=== PATIENT | male | born 1975 | race Caucasian/White ===

== ENCOUNTER 2019-01-13 21:46 | Emergency (ER) | payer OTHER, SELFPAY ==
[2019-01-13 21:50] VITALS: BP 156/92; PULSE 97; RESP 16; TEMP 36.5; O2SAT 95; BMI 34.7
--- NOTE | 2019-01-13 22:20 | DI.US.S_ITS ---
PROCEDURE: US ABDOMEN LIMITED INDICATIONS: POST PRANDIAL EPIGASTRIC PAIN TECHNIQUE: Real-time focused scanning was performed of the abdomen, with image documentation. COMPARISON: [facility], CT, CT ABDOMEN PELVIS W CON, 01/14/2019, 0:10. FINDINGS: The liver is enlarged and demonstrates increased echogenicity. No findings of gallstones or sludge are seen. The gallbladder wall is not thickened, measuring 3 mm or less. No specific pericholecystic fluid is seen. The sonographic Nguyen sign is negative. There is no biliary dilatation, the common bile duct measures 5 mm. The visualized pancreas is unremarkable. IMPRESSION: The gallbladder demonstrates a normal sonographic appearance. No biliary dilatation is seen. Enlarged, fatty liver. Note: No significant discrepancy from the preliminary report. Dictated by: Mando Calderon M.D. on 01/14/2019 at 7:42 Approved by: Mando Calderon M.D. on 01/14/2019 at 7:43
[2019-01-13] MEDS: ONDANSETRON 4 MG/2 ML INJ IV (22:21)
[2019-01-13] MEDS: SODIUM CHLORIDE 0.9% 1,000 ML 1000 ML IV (22:21)
[2019-01-13] MEDS: HYDROMORPHONE 1 MG INJ 0.5 MG IV (22:27)
[2019-01-13] MEDS: PANTOPRAZOLE 40 MG VIAL IV (22:27)
[2019-01-13 22:32] LABS: Alanine Aminotransferase 36 IU/L (21-72); Albumin 4.5 g/dL (3.5-5.0); Albumin Globulin Ratio 1.4 (1.0-2.8); Alkaline Phosphatase 76 U/L (38-126); Aspartate Aminotransferase 39 IU/L (17-59); BUN Creatinine Ratio 17.1 (6-22); Bilirubin Total 0.7 mg/dL (0.2-1.3); Blood Urea Nitrogen 12 mg/dL (9-20); Calcium 9.4 mg/dL (8.4-10.2); Carbon Dioxide 31 mmol/L (22-32); Chloride 98 mmol/L (98-107); Estimated Glomerular Filt Rate > 60.0 mL/min (>60); Globulin 3.2 g/dL (1.7-4.1); Glucose 132 mg/dL (70-100); HEMOLYSIS < 15 (0-50); Lipase 42 U/L (23-300); Potassium 4.3 mmol/L (3.4-5.1); Sodium 139 mmol/L (137-145); Total Protein 7.7 g/dL (6.3-8.2)
[2019-01-13 22:38] VITALS: BP 105/44; PULSE 90; RESP 18; O2SAT 94
[2019-01-13 22:39] LABS: Add Manual Diff / Slide Review NO; Basophils Absolute Auto 0 /uL (0-100); Basophils Percent Auto 0.5 % (0-2); Eosinophils Absolute Auto 100 /uL (0-450); Eosinophils Percent Auto 1.1 % (2-4); Hemoglobin 10.4 g/dL (13.5-17.5); Lymphocytes Absolute Auto 1100 /uL (1100-4500); Mean Corpuscular HGB Conc 29.6 % (30-36); Mean Corpuscular Hemoglobin 20.3 PG (26-34); Mean Corpuscular Volume 68.4 fL (80-100); Monocytes Absolute Auto 600 /uL (0-900); Monocytes Percent Auto 6.1 % (3-14); Neutrophils Absolute Auto 7500 /uL (1500-7000); Neutrophils Percent Auto 80.3 % (50-75); Platelet Count 243 X10^3/uL (150-400); Red Blood Cell Count 5.12 X10^6/uL (4.5-5.9); Red Cell Distribution Width 17.7 % (11.6-14.8); White Blood Cell Count 9.4 X10^3/uL (4.5-11.0)
[2019-01-13 23:22] LABS: Anisocytosis 2+; Microcytosis 1+
--- NOTE | 2019-01-13 23:39 | DI.CT.S_ITS ---
PROCEDURE: CT ABDOMEN PELVIS W CON INDICATIONS: severe abdominal pain TECHNIQUE: After the administration of intravenous contrast, 5 mm thick sections acquired from the diaphragm to the symphysis. Images are repeated, secondary to motion artifact. 5 mm coronal and sagittal reformats were acquired. For radiation dose reduction, the following was used: automated exposure control, adjustment of mA and/or kV according to patient size. COMPARISON: [facility], , ABDOMEN LIMITED, 01/13/2019, 22:43. FINDINGS: Image quality: This examination is limited by involuntary motion artifact. Images are repeated, with some improvement. ABDOMEN: Lung bases: Lung bases are clear. Heart size is normal. There is a large hiatal hernia seen, which contains the majority of the patient's stomach. Solid organs: Liver is normal in size and enhancement. Gallbladder wall is not thickened. Biliary system is non dilated. Pancreas enhances normally. The spleen is enlarged measuring 18 cm AP. No focal splenic lesions are seen. Calcified granulomas can be seen within the spleen. No adrenal nodules. Kidneys demonstrate normal size and enhancement, without hydronephrosis. Peritoneum and bowel: Bowel loops demonstrate normal wall thickness and caliber. A trace amount of free fluid can be seen within the pelvis, as on series 2 image 91. No free air. Incidental note is made of a normal-appearing appendix. Right lower quadrant clips are also seen. Minimal sigmoid diverticulosis is seen, without findings of active diverticulitis. Nodes and vessels: No retroperitoneal or mesenteric adenopathy by size criteria. Aorta and inferior vena cava are normal in size. Miscellaneous: No ventral hernias. PELVIS: Genitourinary: Bladder wall thickness is normal. Miscellaneous: Bilateral fat-containing inguinal hernias are seen. No enlarged inguinal hernias are seen. Bones: No suspicious bony lesions. No vertebral body compression fractures. IMPRESSION: Large hiatal hernia, containing majority of the patient's stomach. There is a trace amount of free fluid seen within the pelvis. No abscess. There is a normal appendix seen. Splenomegaly. Negative for diverticulitis or bowel obstruction. Incidental note is made of: Prior granulomatous exposure. Bilateral inguinal hernias Note: No significant discrepancy from the preliminary report. Dictated by: Mando Calderon M.D. on 01/14/2019 at 7:44 Approved by: Mando Calderon M.D. on 01/14/2019 at 7:49
[2019-01-13 23:40] VITALS: BP 104/57; PULSE 83; RESP 18; O2SAT 98
[2019-01-14] MEDS: HYDROMORPHONE 1 MG INJ IV (00:25)
--- NOTE | 2019-01-14 01:17 | ED.ABDPAIN ---
HPI - Abdominal Pain General Chief Complaint: Abdominal Pain Stated Complaint: Vomiting,abdominal pain Time Seen by Provider: 01/13/19 22:01 Source: patient and family Mode of arrival: ambulatory Limitations: no limitations History of Present Illness HPI narrative: 43-year-old male former chewing tobacco user and chronic drinker presents with his and evaluation of severe epigastric pain with radiation to his back which started a few hours ago tonight after eating dinner. His pain is in his epigastrium and worse with food, drink and palpation. He is nauseated and vomited a few times. He denies fever or shaking chills. He denies any history of the same. MD complaint: abdominal pain Onset (ago): hour(s) Pain Consistency: constant Location: epigastric Severity: moderate Quality: cramping and aching Radiation: epigastric Migration to: no migration Relieving factors: nothing Exacerbating factors: eating Associated symptoms: nausea and vomiting Related Data Allergies Allergy/AdvReac Type Severity Reaction Status Date / Time No Known Drug Allergies Allergy Verified 01/13/19 22:00 Review of Systems Constitutional Denies chills, Denies fever(s), Denies lethargy and Denies weakness Eyes Denies change in vision, Denies eye discharge, Denies irritation and Denies loss of vision ENT Ears, Nose, Mouth, and Throat: Denies change in voice, Denies neck pain and Denies sore throat Cardiovascular Denies chest pain, Denies irregular heart rhythm, Denies lightheadedness, Denies palpitations, Denies dyspnea, Denies dyspnea on exertion and Denies orthopnea Respiratory Denies cough, Denies dyspnea, Denies dyspnea on exertion and Denies wheezing Gastrointestinal Gastrointestinal: Reports abdominal pain, Denies change in bowel habits, Denies diarrhea, Reports nausea and Reports vomiting Genitourinary Denies hematuria, Denies flank pain, Denies urinary incontinence and Denies urinary urgency Musculoskeletal Denies neck pain Integumentary/Breasts Denies pruritus, Denies erythema, Denies rash and Denies wounds Neurologic Denies confusion, Denies loss of vision and Denies weakness Psychiatric Denies anxiety, Denies confusion, Denies depression, Denies homicidal ideation and Denies suicidal ideation Endocrine Denies palpitations Hematologic/Lymphatic Denies easy bruising Allergic/Immunologic Denies wheezing [facility] Social History Smoking Status: Former smoker Social History Smoking Status: Former smoker Exam Narrative Exam Narrative: GENERAL: 43M in obvious pain, rubbing his upper abdomen HEAD: Atraumatic. Normocephalic. No temporal or scalp tenderness. EYES: Pupils equal round and reactive. Extraocular motions intact. No scleral icterus. No injection or drainage. ENT: Nose without bleeding, purulent drainage or septal hematoma. Throat without erythema, tonsillar hypertrophy or exudate. Uvula midline. Airway patent. NECK: Trachea midline. No JVD or lymphadenopathy. Supple, nontender, no meningeal signs. CARDIOVASCULAR: Regular rate and rhythm without murmurs, gallops, or rubs. RESPIRATORY: Clear to auscultation. Breath sounds equal bilaterally. No wheezes, rales, or rhonchi. GASTROINTESTINAL: Abdomen soft, tender epigastrum, nondistended. No hepato-splenomegaly, or palpable masses. No guarding. EXTREMITIES: No clubbing, cyanosis, or edema. No joint tenderness, effusion, or edema noted. BACK: Nontender without deformity or crepitance. No flank tenderness. NEURO: AOx3. SKIN: No rash or erythema. Initial Vital Signs Initial Vital Signs: Vital Signs Temperature 97.7 F 01/13/19 21:50 Pulse Rate 97 H 01/13/19 21:50 Respiratory Rate 16 01/13/19 21:50 Blood Pressure 156/92 H 01/13/19 21:50 Pulse Oximetry 95 01/13/19 21:50 Course Orders Ordered: ED Orders 01/13/19 22:05 Complete Blood Count AUTO DIFF Stat Comprehensive Metabolic Panel Stat Lipase Stat 01/13/19 22:20 US abdomen limited Stat 01/13/19 23:39 CT abdomen pelvis w con Stat Discontinued Medications Hydromorphone HCl (Dilaudid) 0.5 mg IV NOW ONE Stop: 01/13/19 22:20 Last Admin: 01/13/19 22:27 Dose: 0.5 mg Hydromorphone HCl (Dilaudid) 1 mg IV NOW ONE Stop: 01/13/19 23:50 Last Admin: 01/14/19 00:25 Dose: 1 mg Sodium Chloride (Normal Saline 0.9%) 1,000 mls @ 1,000 mls/hr IV BOLUS ONE Stop: 01/13/19 23:11 Last Infusion: 01/13/19 23:29 Dose: 0 mls/hr Admin: 01/13/19 22:21 Dose: 1,000 mls/hr Ondansetron HCl (Zofran) 4 mg IV NOW ONE Stop: 01/13/19 22:13 Last Admin: 01/13/19 22:21 Dose: 4 mg Pantoprazole Sodium (Protonix) 40 mg IV NOW ONE Stop: 01/13/19 22:21 Last Admin: 01/13/19 22:27 Dose: 40 mg Reevaluation(s) Reevaluation #1: patient feeling better after dilaudid Vital Signs - 8 hr 01/13/19 21:50 01/13/19 22:38 01/13/19 23:40 Temperature 97.7 F Pulse Rate 97 H 90 83 Respiratory Rate 16 18 18 Blood Pressure 156/92 H Blood Pressure [Left Arm] 105/44 L 104/57 L Pulse Oximetry 95 94 98 MDM - Abdominal Pain Lab Data Attestation: I reviewed the patient's lab results. Result diagrams: 01/13/19 22:05 01/13/19 22:05 Lab Results 01/13/19 01/13/19 Range/Units 22:05 22:05 WBC 9.4 (4.5-11.0) X10^3/uL RBC 5.12 (4.5-5.9) X10^6/uL Hgb 10.4 L (13.5-17.5) g/dL Hct 35.0 L (41-53) % MCV 68.4 L (80-100) fL MCH 20.3 L (26-34) PG MCHC 29.6 L (30-36) % RDW 17.7 H (11.6-14.8) % Plt Count 243 (150-400) X10^3/uL Neut % (Auto) 80.3 H (50-75) % Lymph % (Auto) 12.0 L (25-40) % [place] % (Auto) 6.1 (3-14) % Eos % (Auto) 1.1 L (2-4) % Baso % (Auto) 0.5 (0-2) % Neut # (Auto) 7500 H (6198-8145) /uL Lymph # (Auto) 1100 (5404-5334) /uL [place] # (Auto) 600 (0-900) /uL Eos # (Auto) 100 (0-450) /uL Baso # (Auto) 0 (0-100) /uL Plt Morphology Comment * RBC Morphology See below Anisocytosis 2+ H Microcytosis 1+ H Sodium 139 (137-145) mmol/L Potassium 4.3 (3.4-5.1) mmol/L Chloride 98 (98-107) mmol/L Carbon Dioxide 31 (22-32) mmol/L BUN 12 (9-20) mg/dL Creatinine 0.70 (0.66-1.25) mg/dL Estimated GFR > 60.0 (>60) mL/min BUN/Creatinine Ratio 17.1 (6-22) Glucose 132 H (70-100) mg/dL Calcium 9.4 (8.4-10.2) mg/dL Total Bilirubin 0.7 (0.2-1.3) mg/dL AST 39 (17-59) IU/L ALT 36 (21-72) IU/L Alkaline Phosphatase 76 (38-126) U/L Total Protein 7.7 (6.3-8.2) g/dL Albumin 4.5 (3.5-5.0) g/dL Globulin 3.2 (1.7-4.1) g/dL Albumin/Globulin Ratio 1.4 (1.0-2.8) Lipase 42 (23-300) U/L Point of care testing: Urine Dip Bedside Urine Glucose Negative Bedside Urine Bilirubin - Negative Bedside Urine Ketone - Negative Urine Specific [place] 1.025 Bedside Urine Occult Blood - Negative Bedside Urine pH 6.0 Bedside Urine Protein +/- 15 Bedside Urine Urobilinogen +/- 1mg Bedside Urine Nitrite - Negative Bedside Urine Leukocytes - Negative Esterase Imaging Data US - abdomen: Radiologist's impression: normal GB fatty liver CT scan - abdomen: Radiologist's impression: No acute disease in the abdomen or pelvis. No evidence of bowel obstruction or free air. Normal appendix. Large hiatal hernia. Splenomegaly. MDM Narrative Medical decision making narrative: Multiple etiologies for patient's symptoms considered including: [Pancreatitis versus gallbladder disease versus bowel obstruction versus GERD versus peptic ulcer disease versus gastritis] Patient's symptoms improved or duration of stay with above-stated therapies. Findings and discharge diagnosis discussed with patient/family followed by verbalization of understanding Return precautions discussed with patient/family whom verbalize understanding. Discharge Plan Departure Patient Disposition: Home Clinical Impression: Abdominal pain, acute, epigastric Instructions: DI for Abdominal Pain-Adult Activity Restrictions/Additional Instructions: 1. Drink plenty of fluids with frequent small sips. 2. For the next 24 hours a clear liquid diet is advised. After that please employ a brat diet which would include bananas, rice, apples, toast. 3. Please take medications as directed. Consider over the counter Nexium 4. Please follow-up with your doctor in the next 1-2 days. Call the office for an appointment. 5. Please return to the emergency Department for any worsening or persistent symptoms, such as increasing pain or fever.
--- NOTE | 2019-01-14 01:23 | ED_ITS ---
HPI - Abdominal Pain General Chief Complaint: Abdominal Pain Stated Complaint: Vomiting,abdominal pain Time Seen by Provider: 01/13/19 22:01 Source: patient and family Mode of arrival: ambulatory Limitations: no limitations History of Present Illness HPI narrative: 43-year-old male former chewing tobacco user and chronic drinker presents with his and evaluation of severe epigastric pain with radiation to his back which started a few hours ago tonight after eating dinner. His pain is in his epigastrium and worse with food, drink and palpation. He is nauseated and vomited a few times. He denies fever or shaking chills. He denies any history of the same. MD complaint: abdominal pain Onset (ago): hour(s) Pain Consistency: constant Location: epigastric Severity: moderate Quality: cramping and aching Radiation: epigastric Migration to: no migration Relieving factors: nothing Exacerbating factors: eating Associated symptoms: nausea and vomiting Related Data Allergies Allergy/AdvReac Type Severity Reaction Status Date / Time No Known Drug Allergies Allergy Verified 01/13/19 22:00 Review of Systems Constitutional Denies chills, Denies fever(s), Denies lethargy and Denies weakness Eyes Denies change in vision, Denies eye discharge, Denies irritation and Denies loss of vision ENT Ears, Nose, Mouth, and Throat: Denies change in voice, Denies neck pain and Denies sore throat Cardiovascular Denies chest pain, Denies irregular heart rhythm, Denies lightheadedness, Denies palpitations, Denies dyspnea, Denies dyspnea on exertion and Denies orthopnea Respiratory Denies cough, Denies dyspnea, Denies dyspnea on exertion and Denies wheezing Gastrointestinal Gastrointestinal: Reports abdominal pain, Denies change in bowel habits, Denies diarrhea, Reports nausea and Reports vomiting Genitourinary Denies hematuria, Denies flank pain, Denies urinary incontinence and Denies urinary urgency Musculoskeletal Denies neck pain Integumentary/Breasts Denies pruritus, Denies erythema, Denies rash and Denies wounds Neurologic Denies confusion, Denies loss of vision and Denies weakness Psychiatric Denies anxiety, Denies confusion, Denies depression, Denies homicidal ideation and Denies suicidal ideation Endocrine Denies palpitations Hematologic/Lymphatic Denies easy bruising Allergic/Immunologic Denies wheezing [facility] Social History Smoking Status: Former smoker Social History Smoking Status: Former smoker Exam Narrative Exam Narrative: GENERAL: 43M in obvious pain, rubbing his upper abdomen HEAD: Atraumatic. Normocephalic. No temporal or scalp tenderness. EYES: Pupils equal round and reactive. Extraocular motions intact. No scleral icterus. No injection or drainage. ENT: Nose without bleeding, purulent drainage or septal hematoma. Throat without erythema, tonsillar hypertrophy or exudate. Uvula midline. Airway patent. NECK: Trachea midline. No JVD or lymphadenopathy. Supple, nontender, no meningeal signs. CARDIOVASCULAR: Regular rate and rhythm without murmurs, gallops, or rubs. RESPIRATORY: Clear to auscultation. Breath sounds equal bilaterally. No wheezes, rales, or rhonchi. GASTROINTESTINAL: Abdomen soft, tender epigastrum, nondistended. No hepato- splenomegaly, or palpable masses. No guarding. EXTREMITIES: No clubbing, cyanosis, or edema. No joint tenderness, effusion, or edema noted. BACK: Nontender without deformity or crepitance. No flank tenderness. NEURO: AOx3. SKIN: No rash or erythema. Initial Vital Signs Initial Vital Signs: Vital Signs Temperature 97.7 F 01/13/19 21:50 Pulse Rate 97 H 01/13/19 21:50 Respiratory Rate 16 01/13/19 21:50 Blood Pressure 156/92 H 01/13/19 21:50 Pulse Oximetry 95 01/13/19 21:50 Course Orders Ordered: ED Orders 01/13/19 22:05 Complete Blood Count AUTO DIFF Stat Comprehensive Metabolic Panel Stat Lipase Stat 01/13/19 22:20 US abdomen limited Stat 01/13/19 23:39 CT abdomen pelvis w con Stat Discontinued Medications Hydromorphone HCl (Dilaudid) 0.5 mg IV NOW ONE Stop: 01/13/19 22:20 Last Admin: 01/13/19 22:27 Dose: 0.5 mg Hydromorphone HCl (Dilaudid) 1 mg IV NOW ONE Stop: 01/13/19 23:50 Last Admin: 01/14/19 00:25 Dose: 1 mg Sodium Chloride (Normal Saline 0.9%) 1,000 mls @ 1,000 mls/hr IV BOLUS ONE Stop: 01/13/19 23:11 Last Infusion: 01/13/19 23:29 Dose: 0 mls/hr Admin: 01/13/19 22:21 Dose: 1,000 mls/hr Ondansetron HCl (Zofran) 4 mg IV NOW ONE Stop: 01/13/19 22:13 Last Admin: 01/13/19 22:21 Dose: 4 mg Pantoprazole Sodium (Protonix) 40 mg IV NOW ONE Stop: 01/13/19 22:21 Last Admin: 01/13/19 22:27 Dose: 40 mg Reevaluation(s) Reevaluation #1: patient feeling better after dilaudid Vital Signs - 8 hr 01/13/19 21:50 01/13/19 22:38 01/13/19 23:40 Temperature 97.7 F Pulse Rate 97 H 90 83 Respiratory Rate 16 18 18 Blood Pressure 156/92 H Blood Pressure [Left Arm] 105/44 L 104/57 L Pulse Oximetry 95 94 98 MDM - Abdominal Pain Lab Data Attestation: I reviewed the patient's lab results. Result diagrams: 01/13/19 22:05 01/13/19 22:05 Lab Results 01/13/19 01/13/19 Range/Units 22:05 22:05 WBC 9.4 (4.5-11.0) X10^3/uL RBC 5.12 (4.5-5.9) X10^6/uL Hgb 10.4 L (13.5-17.5) g/dL Hct 35.0 L (41-53) % MCV 68.4 L (80-100) fL MCH 20.3 L (26-34) PG MCHC 29.6 L (30-36) % RDW 17.7 H (11.6-14.8) % Plt Count 243 (150-400) X10^3/uL Neut % (Auto) 80.3 H (50-75) % Lymph % (Auto) 12.0 L (25-40) % [place] % (Auto) 6.1 (3-14) % Eos % (Auto) 1.1 L (2-4) % Baso % (Auto) 0.5 (0-2) % Neut # (Auto) 7500 H (7792-1861) /uL Lymph # (Auto) 1100 (0007-8730) /uL [place] # (Auto) 600 (0-900) /uL Eos # (Auto) 100 (0-450) /uL Baso # (Auto) 0 (0-100) /uL Plt Morphology Comment * RBC Morphology See below Anisocytosis 2+ H Microcytosis 1+ H Sodium 139 (137-145) mmol/L Potassium 4.3 (3.4-5.1) mmol/L Chloride 98 (98-107) mmol/L Carbon Dioxide 31 (22-32) mmol/L BUN 12 (9-20) mg/dL Creatinine 0.70 (0.66-1.25) mg/dL Estimated GFR > 60.0 (>60) mL/min BUN/Creatinine Ratio 17.1 (6-22) Glucose 132 H (70-100) mg/dL Calcium 9.4 (8.4-10.2) mg/dL Total Bilirubin 0.7 (0.2-1.3) mg/dL AST 39 (17-59) IU/L ALT 36 (21-72) IU/L Alkaline Phosphatase 76 (38-126) U/L Total Protein 7.7 (6.3-8.2) g/dL Albumin 4.5 (3.5-5.0) g/dL Globulin 3.2 (1.7-4.1) g/dL Albumin/Globulin Ratio 1.4 (1.0-2.8) Lipase 42 (23-300) U/L Point of care testing: Urine Dip Bedside Urine Glucose Negative Bedside Urine Bilirubin - Negative Bedside Urine Ketone - Negative Urine Specific [place] 1.025 Bedside Urine Occult Blood - Negative Bedside Urine pH 6.0 Bedside Urine Protein +/- 15 Bedside Urine Urobilinogen +/- 1mg Bedside Urine Nitrite - Negative Bedside Urine Leukocytes - Negative Esterase Imaging Data US - abdomen: Radiologist's impression: normal GB fatty liver CT scan - abdomen: Radiologist's impression: No acute disease in the abdomen or pelvis. No evidence of bowel obstruction or free air. Normal appendix. Large hiatal hernia. Splenomegaly. MDM Narrative Medical decision making narrative: Multiple etiologies for patient's symptoms considered including: [Pancreatitis versus gallbladder disease versus bowel obst ruction versus GERD versus peptic ulcer disease versus gastritis] Patient's symptoms improved or duration of stay with above-stated therapies. Findings and discharge diagnosis discussed with patient/family followed by verbalization of understanding Return precautions discussed with patient/family whom verbalize understanding. Discharge Plan Departure Patient Disposition: Home Clinical Impression: Abdominal pain, acute, epigastric Instructions: DI for Abdominal Pain-Adult Activity Restrictions/Additional Instructions: 1. Drink plenty of fluids with frequent small sips. 2. For the next 24 hours a clear liquid diet is advised. After that please employ a brat diet which would include bananas, rice, apples, toast. 3. Please take medications as directed. Consider over the counter Nexium 4. Please follow-up with your doctor in the next 1-2 days. Call the office for an appointment. 5. Please return to the emergency Department for any worsening or persistent symptoms, such as increasing pain or fever.
[2019-01-14 01:46] VITALS: BP 117/68; PULSE 72; RESP 18; O2SAT 96
[2019-01-14] MEDS: HYDROCODONE/ACET 5/325 PREPACK 1 BOTTLE MISC (01:56)
[2019-01-14] MEDS: ONDANSETRON 4 MG ODT PREPACK 1 BOTTLE MISC (01:56)
== END 2019-01-14 02:00 | disposition home or self-care (01) ==
PROVIDERS: Emergency Provider Emergency Medicine
DX: R10.13 Epigastric pain (principal); R11.2 Nausea with vomiting, unspecified
CPT/HCPCS: 36591; 74177; 76705; 80053; 81003; 83690; 85025; 96366; 96374; 96375; 96376; 99283; 99284; C9113; J1170; J2405; Q9967